=== PATIENT | male | born 1950 | race Hispanic/Latino ===

== ENCOUNTER 2018-01-17 10:15 | Emergency (ER) | payer MEDICARE, BC ==
[2018-01-17] MEDS ORDERED: ASPIRIN PO ONE (11:47)
[2018-01-17 11:52] VITALS: BP 130/73
[2018-01-17] MEDS ORDERED: PROVENTIL IH ONE (12:05)
[2018-01-17] MEDS ORDERED: ATROVENT IH ONE (12:05)
--- NOTE | 2018-01-17 12:12 | Emergency Department Report ---
HPI - General Chief Complaint: Dyspnea/Respdistress Time Seen by Provider: 01/17/18 11:56 - HPI HPI: Room 2 The patient is a 67-year-old male presenting with a chief complaint of shortness of breath. The patient states today at work she began to feel a little short of breath so he took his daily inhaler which did not help. The patient complained of back pain which she described as sharp and intermittent for 2-3 seconds, and became diaphoretic at one point per bystanders. The patient had an episode of nausea and vomiting with this dry cough. Patient denies having chest pain time. The patient currently just feels general weakness and shortness of breath has resolved. The patient states his last stress test occur approximately one year ago and was normal. The patient states he certainly had a cardiac catheterization within the past 2-3 years that was completely normal Location: Lungs, see above Duration: [See above] Quality: Shortness of breath Severity: [See above] Modifying factors: [see above] Context: [see above] Mode of transportation: [not driving] ED Past Medical Hx - Past Medical History Previous Medical History?: Yes Hx Hypertension: Yes Hx COPD: Yes Additional medical history: a fib - Surgical History Past Surgical History?: Yes Additional Surgical History: shoulder - Family History Family history: no significant - Social History Smoking Status: Former Smoker (none since 10/28/2017) Substance Use Type: None (denies illicit drug use) - Medications Home Medications: Home Medications Medication Instructions Recorded Confirmed Last Taken Type Amlodipine Besylate [Norvasc] 5 mg PO QPM 01/17/18 01/17/18 01/16/18 History Budesonide/Formoterol Fumarate 10.2 gm IH PRN 01/17/18 01/17/18 01/17/18 History [Symbicort 160-4.5 Mcg Inhaler] Irbesartan/Hydrochlorothiazide 1 each PO QDAY 01/17/18 01/17/18 01/17/18 History [Avalide 300-12.5 mg] Metoprolol [Lopressor TAB] 50 mg PO BID 01/17/18 01/17/18 01/17/18 History Prednisone [predniSONE 10 mg 10 mg PO .TAPER #1 tab.ds.pk 01/17/18 Unknown Rx (6-Day Pack, 21 Tabs)] Simvastatin [Zocor] 40 mg PO QHS 01/17/18 01/17/18 01/16/18 History Zolpidem [Ambien] 10 mg PO QHS 01/17/18 01/17/18 01/16/18 History traMADol [Ultram] 50 mg PO Q6HR PRN 01/17/18 01/17/18 Unknown History ED Review of Systems ROS: Stated complaint: SARA Other details as noted in HPI Constitutional: diaphoresis Respiratory: cough, shortness of breath Cardiovascular: denies: chest pain Gastrointestinal: nausea, vomiting Physical Exam - Physical Exam Vital Signs: Vital Signs 01/17/18 11:48 Temperature 98 F Pulse Rate 82 Respiratory 16 Rate Blood Pressure 130/73 O2 Sat by Pulse 97 Oximetry Physical Exam: GENERAL: The patient is well-developed well-nourished male sitting on stretcher not appearing to be in acute distress. [] HEENT: Normocephalic. Atraumatic. Extraocular motions are intact. Patient has moist mucous membranes. NECK: Supple. Trachea midline CHEST/LUNGS: Faint expiratory wheezing right lower lobe. There is no respiratory distress noted. HEART/CARDIOVASCULAR: Regular. There is no tachycardia. There is no gallop rub or murmur. ABDOMEN: Abdomen is soft, nontender. Patient has normal bowel sounds. There is no abdominal distention. SKIN: There is no rash. There is no diaphoresis. NEURO: The patient is awake, alert, and oriented. The patient is cooperative. The patient has normal speech MUSCULOSKELETAL: There is no evidence of acute injury. ED Course Vital Signs 01/17/18 11:48 Temperature 98 F Pulse Rate 82 Respiratory 16 Rate Blood Pressure 130/73 O2 Sat by Pulse 97 Oximetry - Reevaluation(s) Reevaluation #1: 01/17/18 13:09 Patient sitting comfortably on stretcher eating food. 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 135.00 Sodium 138 Potassium 4.1 Chloride 98.2 Carbon Dioxide 26 Anion Gap 18 BUN 10 Creatinine 0.6 L Estimated GFR > 60 BUN/Creatinine Ratio 17 Glucose 108 H Calcium 9.3 Troponin T < 0.010 - EKG Data -: EKG Interpreted by Me Rate: normal - EKG Data When compared to previous EKG there are: previous EKG unavailable Interpretation: other (atrial fibrillation at 79 bpm) - Radiology Data Radiology results: report reviewed (chest x-ray), image reviewed (chest x-ray) interpreted by me: Chest x-ray-no focal infiltrates, no pneumothorax [facility] [address] [place] [address] XRay Report Signed Patient: HEATHER CALVO MR#: [id number] : 1950 Acct:[id number] Age/Sex: 67 / M ADM Date: 01/17/18 Loc: ED Attending Dr: Ordering Physician: NESS BUENO MD Date of Service: 01/17/18 Procedure(s): XR chest 1V ap Accession Number(s): [id number] cc: NESS BUENO MD Fluoro Time In Minutes: AP CHEST: HISTORY: Shortness of breath The lungs are mildly hyperinflated suggesting mild emphysema. No evidence for pneumonia, pleural effusion or pneumothorax. Heart size and pulmonary vascularity are within normal limits. The bony structures are grossly intact. IMPRESSION: Hyperinflation. No acute process. Transcribed By: TTR Dictated By: ALMA WHITFIELD JR, MD Electronically Authenticated By: ALMA WHITFIELD JR, MD Signed Date/Time: 01/17/181215 DD/ 15 TD/TT: 01/17/181215 - Differential Diagnosis COPD exacerbation, ACS, pneumonia, pneumothorax Critical care attestation.: If time is entered above; I have spent that time in minutes in the direct care of this critically ill patient, excluding procedure time. ED Disposition Clinical Impression: COPD exacerbation, Shortness of breath Disposition: DC-01 TO HOME OR SELFCARE Is pt being admited?: No Does the pt Need Aspirin: No Condition: Stable Instructions: Chronic Obstructive Pulmonary Disease (ED) Additional Instructions: Return to the emergency department immediately should you develop worsening symptoms, fever, inability to tolerate food or liquid or any other concerns. Prescriptions: Prednisone [predniSONE 10 mg (6-Day Pack, 21 Tabs)] 10 mg PO .TAPER #1 tab.ds.pk Referrals: Dr. Cox, your community development worker [Other] - 3-5 Days Time of Disposition: 13:10
--- NOTE | 2018-01-17 12:25 | XRay Report ---
AP CHEST: HISTORY: Shortness of breath The lungs are mildly hyperinflated suggesting mild emphysema. No evidence for pneumonia, pleural effusion or pneumothorax. Heart size and pulmonary vascularity are within normal limits. The bony structures are grossly intact. IMPRESSION: Hyperinflation. No acute process.
[2018-01-17 12:41] LABS: BUN/Creatinine Ratio 17; Blood Urea Nitrogen 10 mg/dL (9-20); Calcium 9.3 mg/dL (8.4-10.2); Hemolysis Index 19
[2018-01-17 12:43] LABS: Hematocrit 40.8 % (35.5-45.6); Mean Corpuscular HGB Conc 34 % (32-34); Mean Corpuscular Hemoglobin 34 pg (28-32); Mean Corpuscular Volume 100 fl (84-94); Platelet Count 213 K/mm3 (140-440); Red Cell Distribution Width 13.7 % (13.2-15.2)
[2018-01-17 14:35] LABS: Basophils % (Manual) 0 % (0.0-1.8); RBC Morphology Normal; Total Cells Counted 100
== END 2018-01-17 13:37 | disposition home or self-care (01) ==
LOC: ED 10:15
DX: J44.1 Chronic obstructive pulmonary disease with (acute) exacerbation (principal); I10 Essential (primary) hypertension
CPT/HCPCS: 36415; 71045; 80048; 84484; 85007; 85025; 85379; 93005; 93010